=== PATIENT | male | born 1970 | race Caucasian/White ===

== ENCOUNTER → 2017-07-25 | Outpatient (CLI) | payer MEDICARE, BC ==
[~2017-07-25] VITALS: Ht 177.8 cm; Wt 239.0 kg
[~2017-07-25] MED LIST: ASPIRIN 81M81 MG/TA2 PO; BYSTOLIC10 MG PO; MASON NATURAL1200 MG PO; NORCO 325 MG-101 TAB PO; PRINZIDE 12.5 M1 TAB; ZESTORETIC 12.51 TA1 PO
== END ==
LOC: COL.CARD 09:56
DX: R06.02 Shortness of breath (principal); Z53.8 Procedure and treatment not carried out for other reasons

== ENCOUNTER → 2017-11-07 | Outpatient (CLI) | payer MEDICARE, BC ==
[~2017-11-07] VITALS: Ht 182.9 cm; Wt 238.0 kg
[2017-11-07] VITALS (15 sets, daily range): BP systolic 108–175; BP diastolic 49–95; PULSE 67–147
== END ==
LOC: COL.CARD 07:45
DX: R06.02 Shortness of breath (principal)
CPT/HCPCS: C8924; J1250; Q9957